=== PATIENT | male | born 1965 | race Caucasian/White ===

== ENCOUNTER 2017-01-07 07:18 | Day surgery (SDC) | payer OTHER ==
[2017-01-03 11:58] LABS: BASOPHILS 0.7 %; BASOPHILS ABSOLUTE 0.05 10/3/uL (0.0-0.16); EOSINOPHILS 2.4 %; EOSINOPHILS ABSOLUTE 0.18 10/3/uL (0.0-0.53); HEMATOCRIT 46.4 % (40.0-51.0); HEMOGLOBIN 15.9 g/dL (13.6-17.8); IMMATURE GRANULOCYTES 1.5 %; IMMATURE GRANULOCYTES ABSOLUTE 0.11 10/3/uL (0.0-0.11); LYMPHOCYTES 18.1 %; LYMPHOCYTES ABSOLUTE 1.37 10/3/uL (0.67-4.30); MANUAL DIFF NO %; MEAN CORPUS HGB CONC 34.3 g/dL (32.0-36.0); MEAN CORPUSCULAR HEMOGLOB 31.4 pg (26.0-34.0); MEAN CORPUSCULAR VOLUME 91.5 fL (80-100); MEAN PLATELET VOLUME 10.1 fL (9.2-13.0); MONOCYTES 10.7 %; MONOCYTES ABSOLUTE 0.81 10/3/uL (0.21-1.20); NEUTROPHILS 66.6 %; NEUTROPHILS ABSOLUTE 5.04 10/3/uL (2.02-8.40); PLATELET COUNT 216 10/3/uL (150-400); RBC DISTRIBUTION WIDTH 13.5 % (12.0-16.0); RED CELL COUNT 5.07 10/6/uL (4.7-6.1); WHITE BLOOD CELLS 7.6 10/3/uL (4.5-10.5)
[2017-01-03 12:00] LABS: INTERNATIONAL NORMAL RATI 2.1 UNITS (-); PROTIME (NOT ORD) 23.6 SEC (12.0-14.5)
[2017-01-03 12:08] LABS: BUN (BLOOD UREA NITROGEN) 12 MG/DL (6-23); CALCIUM, SERUM 8.5 MG/DL (8.5-10.4); CHLORIDE, SERUM 104 MMOL/L (96-112); CO2 (CARBON DIOXIDE) 25 MMOL/L (24-34); CREATININE 0.82 MG/DL (0.70-1.30); GFR AFRICAN AMERICAN 120 ML/MIN (>=60); GFR NON AFRICAN AMERICAN 104 ML/MIN (>=60); GLUCOSE, SERUM 86 MG/DL (60-99); POTASSIUM, SERUM 4.1 MMOL/L (3.5-5.3); SODIUM, SERUM 140 MMOL/L (135-148)
--- NOTE | ~2017-01-07 | OP ---
Record Of Operation [facility] [address] [place]. [address] NAME: GERARD SEGUNDO : 69 STATUS : [facility]#: [id number] AGE: 51 ADM/REG DATE : 01/07/17 MR#: [id number] REPORT SERV DATE: 01/08/17 DICTATED BY: VINAY EDWARDS DATE: 01/08/17 REPORT STATUS : Draft TRANSCRIBED BY: MODMichel DATE: 01/08/17 DATE OF PROCEDURE: 01/07/2017 PREPROCEDURE DIAGNOSIS: Retained inferior vena cava filter. POSTOPERATIVE DIAGNOSIS: Retained inferior vena cava filter. PROCEDURE PERFORMED: 1. Inferior vena cavogram via right femoral vein approach. 2. Right jugular access for inferior vena cava filter retrieval. 3. Removal of the inferior vena cava retained filter. ANESTHESIA: General. COMPLICATIONS: None. INDICATION FOR PROCEDURE: Secondary to this very pleasant 51-year-old gentleman presenting with a history of an inferior vena cava filter with attempted removal x2 that has failed. Secondary to this, recommendations were made for bilateral approach femoral and jugular for filter removal. Risks and benefits were discussed. Consent was obtained. DETAILS OF PROCEDURE: The patient was brought to the endovascular operating room, placed in supine position, and prepped and draped routine sterile fashion with attention to the right groin and the right neck. The right femoral vein and common femoral vein were then cannulated with a micropuncture needle under ultrasound guidance. Pictures of these structures were taken and placed in the chart. Next, a wire was then passed into the patient and a sheath was then advanced and inferior vena cavagram was then performed showing a patent IVC filter with the head of the filter embedded into the sidewall of the vena cava. It was determined at this point that this was the Cook Celect IVC filter with 6 legs noted. Next using a 7 x 45 sheath, this was advanced to the filter. The sheath was curved. A grasping catheter was then passed through the sheath to grab a hold of the inferior vena cava filter near the neck of the filter. With constant steady pull, the filter was then displaced from the vena cava wall. At this point, the filter was within the center lumen of the vena cava and malformed. The right jugular vein was then cannulated under ultrasound guidance with a micropuncture needle followed by a wire and sheath. The wire was up sized to an Amplatz wire and passed into the vena cava near the filter. A 20-Thai sheath was then advanced over the wire to the vena cava filter, and using the grasping device, the filter was then grasped and pulled into the 20-Thai sheath. The entire sheath was then removed and the filter was then brought out of the sheath on the back table and verified that there were six legs attached. No residual filter was left within the patient. Direct pressure was held up in the neck and a small stitch was in place when that was settled down. Pressure dressing was applied. On the femoral level, the inferior vena cavagram was then performed confirming wide patency of the vena cava. No extravasation noted. The sheath was then removed, a small stitch was in place, and slight pressure dressing was applied at the femoral level. The patient tolerated the procedure well. Record Of Operation [facility] [address] [facility] [place]. [address] NAME: GERARD SEGUNDO : 69 STATUS : [facility]#: [id number] AGE: 51 ADM/REG DATE : 01/07/17 MR#: [id number] REPORT SERV DATE: 01/08/17 DICTATED BY: VINAY EDWARDS DATE: 01/08/17 REPORT STATUS : Draft TRANSCRIBED BY: PRADEEP DATE: 01/08/17 SHANTI/PRADEEP Vinay Edwards M.D. / [id number] CC: Vinay Edwards M.D. NO PCP
[~2017-01-07 07:18] MED LIST: AMIT25 PO; C25 PO; COREG25 PO; LYRICA300 MG PO; PLAVIX PO; PRAV10 PO; PRIN10 PO
[2017-01-07 07:44] LABS: INTERNATIONAL NORMAL RATI 1.9 UNITS (-)
== END 2017-01-07 17:32 | disposition home or self-care (01) ==
LOC: SDC 07:18
PROVIDERS: Specialist
PROC: 06P Lower Veins, Removal (ICD-10-PCS; principal; 2017-01-07 09:00)
DX: T82.898A Other specified complication of vascular prosthetic devices, implants and grafts, initial encounter (principal); I10 Essential (primary) hypertension; I25.10 Atherosclerotic heart disease of native coronary artery without angina pectoris; I25.2 Old myocardial infarction; E78.00 Pure hypercholesterolemia, unspecified; F17.210 Nicotine dependence, cigarettes, uncomplicated; F43.10 Post-traumatic stress disorder, unspecified; Z86.711 Personal history of pulmonary embolism; Z86.718 Personal history of other venous thrombosis and embolism; Z79.02 Long term (current) use of antithrombotics/antiplatelets; Z79.01 Long term (current) use of anticoagulants; Z79.899 Other long term (current) drug therapy; Z95.5 Presence of coronary angioplasty implant and graft; Z98.890 Other specified postprocedural states
CPT/HCPCS: 37193; 71020; 80048; 85025; 85610; 88300; 93005; A9270-GY; C1769; C1894; J0690; J2250; J2405; J2710; J3010; Q9966